=== PATIENT | male | born 1960 | race Caucasian/White ===

== ENCOUNTER 2024-02-18 14:49 | Outpatient (CLI) | payer OTHER ==
[2024-02-18 16:04] LABS: Anion Gap 10 mmol/L (10-20); BUN (Urea Nitrogen) 13 mg/dL (8.4-25.7); Calc. Creatinine Clearance 0 mL/min (70-130); Calcium 9.7 mg/dL (7.8-10.44); Carbon Dioxide 27 mmol/L (23-31); Chloride 104 mmol/L (98-107); Estimated GFR 85; Glucose 101 mg/dL (80-115); Potassium 4.1 mmol/L (3.5-5.1); Sodium 137 mmol/L (136-145)
[2024-02-18 16:08] LABS: #Basophils 0.07 10x3/uL (0.0-0.2); #Eosinphils 0.22 10x3/uL (0.0-0.5); #Monocytes 0.79 10x3/uL (0.0-1.1); #Neutrophils 5.59 10x3/uL (1.5-8.4); %Basophils 0.8 % (0.0-2.0); %Eosinophils 2.6 % (0.0-6.0); %Monocytes 9.4 % (0.0-10.0); Hematocrit 41.5 % (38.8-50.0); Hemoglobin 14.9 g/dL (13.5-17.5); Mean Corpuscular HGB CONC 35.9 g/dL (32.0-36.0); Mean Corpuscular Hemoglobin 31.6 pg (27.0-33.0); Mean Corpuscular Volume 88.1 fL (81.2-95.1); Mean Platelet Volume 9.7 fL (7.4-10.4); Platelet Count 173 10x3/uL (150-450); RBC Distribution Width 12.2 % (11.5-14.5); Red Blood Cell (RBC) Count 4.71 10x6/uL (4.32-5.72); White Blood Cell (WBC) Count 8.4 10x3/uL (3.5-10.5)
== END 2024-02-18 14:50 | disposition home or self-care (01) ==
LOC: LABBT 14:49
PROVIDERS: ATTEND Surgery
DX: Z01.818 Encounter for other preprocedural examination (principal); K42.9 Umbilical hernia without obstruction or gangrene; K40.20 Bilateral inguinal hernia, without obstruction or gangrene, not specified as recurrent
CPT/HCPCS: 80048; 85025; 93005; 93010

== ENCOUNTER 2024-02-23 07:44 | Day surgery (SDC) | payer OTHER ==
[2024-02-18 15:29] VITALS: BMI 26.4
[2024-02-23] MEDS ORDERED: PROPOFOL 20 ML ONE ×2 (09:09→09:22)
[2024-02-23] MEDS ORDERED: Rocuronium Bromide 10 MG/ML (10ML VIAL) ONE (09:10)
[2024-02-23] MEDS ORDERED: Lidocaine 1% PF 5 ML VIAL ONE (09:10)
[2024-02-23] MEDS ORDERED: Bupivacaine 0.25% HCL 30 ML VIAL ONE (09:46)
[2024-02-23] MEDS ORDERED: EPINEPHrine 1 MG/ML VIAL ONE (09:46)
[2024-02-23] MEDS ORDERED: Acetaminophen 500 MG TAB ONE (09:51)
[2024-02-23] MEDS ORDERED: CEFAZOLIN 2 GM VIAL ONE (09:52)
[2024-02-23] MEDS ORDERED: Sodium Chloride 0.9% 100 ML ONE (09:52)
[2024-02-23] MEDS ORDERED: fentaNYL PF 100 MCG/2 ML SYRINGE ONE (09:59)
[2024-02-23] MEDS ORDERED: ePHEDrine Sulfate 50 MG/10 ML VIAL ONE (10:14)
[2024-02-23] MEDS ORDERED: Glycopyrrolate 0.2 MG/ML 5 ML SYRINGE ONE (10:14)
[2024-02-23] MEDS ORDERED: Dexamethasone 20 MG/5 ML VIAL ONE (10:14)
[2024-02-23] MEDS ORDERED: Ketorolac Tromethamine 30 MG (1 mL) VIAL ONE (10:52)
[2024-02-23] MEDS ORDERED: Ondansetron PF 4 MG/2 ML Vial ONE (10:52)
[2024-02-23] MEDS ORDERED: SUGAMMADEX SODIUM 200 MG/2 ML VIAL ONE (10:53)
[2024-02-23] MEDS ORDERED: fentaNYL 50 mcg/mL 1 mL Vial ONE (11:28)
== END 2024-02-23 15:02 | disposition home or self-care (01) ==
LOC: SDC 07:44
PROVIDERS: ATTEND Surgery
PROC: 0YUA4JZ Supplement Bilateral Inguinal Region with Synthetic Substitute, Percutaneous Endoscopic Approach (ICD-10-PCS; principal; 2024-02-23)
DX: K42.9 Umbilical hernia without obstruction or gangrene (principal); K40.20 Bilateral inguinal hernia, without obstruction or gangrene, not specified as recurrent; K43.9 Ventral hernia without obstruction or gangrene; M19.90 Unspecified osteoarthritis, unspecified site; Z98.890 Other specified postprocedural states
CPT/HCPCS: A4314; C1781; J0171; J0665; J1100; J1885; J2405; J2704; J3010